=== PATIENT | female | born 1980 | race Caucasian/White ===

== ENCOUNTER → 2017-06-05 | Outpatient (CLI) | payer BC ==
[~2017-06-05] MED LIST: ACET-1256 PO; IBUP-1427 PO; PRENTAB26 PO
[2017-06-05 16:08] LABS: FOLLICLE STIMULAT HORMONE 9.04 IU/L; PROLACTIN 7.41 ng/mL
== END | disposition home or self-care (01) ==
LOC: C.LAB 15:09
PROVIDERS: ATTEND Obstetrics & Gynecology
DX: N97.9 Female infertility, unspecified (principal)